=== PATIENT | female | born 1995 | race Two or more races ===

== ENCOUNTER 2020-07-13 15:27 | Inpatient (IN) | payer OTHER ==
[~2020-07-13] VITALS: Ht 157.5 cm; Wt 74.8 kg
[2020-07-13] MEDS ORDERED: OBTREX DHA COM1 EACH (17:03)
[2020-07-14] MEDS ORDERED: SERTRALINE HCL50 MG (07:58)
[2020-07-14] MEDS ORDERED: INFED50 MG/ML (07:58)
[2020-07-16] MEDS ORDERED: IBU800 MG PO (09:54)
[2020-07-16] MEDS ORDERED: COLACE100 MG PO (09:54)
[2020-07-16] MEDS ORDERED: GAS RELIEF125 MG PO (09:54)
== END 2020-07-16 13:31 | disposition home or self-care (01) | DRG 788 ==
LOC: OB/GYN 15:27 → LDR 15:27 → OB/GYN 22:27
PROVIDERS: ADMIT Specialist; ATTEND Specialist
PROC: 4A1HXFZ Monitoring of Products of Conception, Cardiac Rhythm, External Approach (ICD-10-PCS; 2020-07-13)
PROC: 10D00Z1 Extraction of Products of Conception, Low, Open Approach (ICD-10-PCS; principal; 2020-07-13 21:00)
DX: O62.1 Secondary uterine inertia (principal); Z37.0 Single live birth; Z3A.37 37 weeks gestation of pregnancy; Z20.822 Contact with and (suspected) exposure to COVID-19